=== PATIENT | female | born 1960 | race Caucasian/White ===

== ENCOUNTER → 2016-09-27 | Outpatient (CLI) | payer OTHER ==
--- NOTE | ~2016-09-27 | MY11 ---
[facility] A Service of [facility] RADIOLOGY TEXT RESULTS PATIENT: HERON MIDDLETON LOCATION: [facility] : 58 UNIT #: [id number] AGE: [address]: SHRAVAN KENT APRN SEX: F ORDER DR: [id number] [facility]. [place], [place] [address] [id number] O MR#: [id number] Acc #: [id number] NAME: HERON MIDDLETON : 1960 SEX: F STUDY DATE/TIME: 09/27/2016 10:49 UNIT: [facility] ROOM: STUDY DESCRIPTION: MY Mammogram Screening Dig Galindo Attending Physician: Shravan Kent Aprn Referring Physician: Jana Nuñez M.D. Ordering Physician: Physician Non-Staff Primary Care Physician: Ebenezer Warren M.D. MEDICAL IMAGING REPORT This report is preliminary unless electronic signature is present EXAM Digital screening mammogram, 09/27/2016. HISTORY A 56-year-old woman positive family history, aunt. Annual screening. FINDINGS Comparison mammograms date to 10/19/2005 with most recent 09/26/2015 FINDINGS Digital imaging of each breast was completed utilizing a two-view examination of each breast in craniocaudal and mediolateral-oblique projections. Review and interpretation of digital mammograms include a second review in conjunction with FDA-approved CAD device. There is a normal parenchymal presentation bilaterally consistent with the patient's age. There are no breast masses imaged and no parenchymal asymmetry is visualized. There are no suspicious microcalcifications and I see no focal architectural disturbance. IMPRESSION Negative screening digital mammogram. One-year followup recommended. Patients over the age of 40 are entered into a reminder system with target due date for the next mammogram. A result letter will also be sent to the patient. BIRADS: 1 Negative ADDENDUM Breast parenchyma is fatty replaced Dictated by... [facility] A Service [facility] RADIOLOGY TEXT RESULTS PATIENT: HERON MIDDLETON LOCATION: [facility] : 58 UNIT #: [id number] AGE: [address]: SHRAVAN KENT APRN SEX: F ORDER DR: Humberto Graham M.D. THIS IS AN ELECTRONICALLY VERIFIED REPORT Humberto Graham M.D. at 09/27/2016 2:09 PM Dylan TD: 09/27/2016 13:31 JOB #: [id number] MEDICAL IMAGING REPORT Page 1 of 1 COPY
== END | disposition home or self-care (01) ==
LOC: CWCC 10:09
DX: Z12.31 Encounter for screening mammogram for malignant neoplasm of breast (principal); Z80.3 Family history of malignant neoplasm of breast; R92.8 Other abnormal and inconclusive findings on diagnostic imaging of breast
CPT/HCPCS: G0202